=== PATIENT | female | born 1980 | race Caucasian/White ===

== ENCOUNTER 2017-05-12 18:40 | Emergency (ER) | payer OTHER ==
[~2017-05-12] VITALS: Ht 170.2 cm; Wt 70.0 kg
[~2017-05-12 18:40] MED LIST: FERR324T4 PO; IBUP800T23 PO; METH-703 PO; PERC5TAB12 PO; PREN0.01 PO
[2017-05-12 18:41] VITALS: BP 122/86; PULSE 94; RESP 20; TEMP 98.4; O2SAT 99
[2017-05-12] MEDS ORDERED: HYDR12.57 PO (19:33)
[2017-05-12] MEDS ORDERED: ADDE10 PO (19:33)
[2017-05-12] MEDS ORDERED: SODIUM CHLOR 0.9% 1000 ML INJ 1,000 ML IV ONE (19:42)
[2017-05-12] MEDS ORDERED: SODIUM CHLORIDE 0.9% FLUSH 10 ML FLUSH IVF PRN (19:45)
[2017-05-12] MEDS ORDERED: KETOROLAC TROMETHAMINE 30 MG/ML (IVP) VIAL IV PUSH ONE (19:45)
[2017-05-12] MEDS ORDERED: ONDANSETRON HCL 4 MG/2 ML VIAL IVP ONE (19:45)
[2017-05-12] MEDS ORDERED: DIAZEPAM 10 MG TAB PO ONE (19:45)
[2017-05-12 20:19] VITALS: RESP 18; O2SAT 98
--- NOTE | 2017-05-12 20:22 | RADRPT ---
EXAM DATE/TIME: 05/12/2017 19:54 [facility] COMPARISON: No previous studies available for comparison. INDICATIONS : Upper back pain. MEDICAL HISTORY : None. SURGICAL HISTORY : None. ENCOUNTER: Initial ACUITY: 4 - 6 days PAIN SCORE: 8/10 LOCATION: Bilateral chest FINDINGS: PA and lateral views of the chest demonstrate a normal-sized cardiac silhouette. There is no effusion , consolidation, or pneumothorax. The bones and soft tissues demonstrate no acute abnormality. CONCLUSION: No acute cardiopulmonary abnormality is identified. Jann Cobian MD on May 12, 2017 at 20:19 Board Certified Radiologist. This report was verified electronically.
--- NOTE | 2017-05-12 20:24 | RADRPT ---
EXAM DATE/TIME: 05/12/2017 19:57 [facility] COMPARISON: No previous studies available for comparison. INDICATIONS : Right shoulder pain. Possible pulled muscle. No prior trauma. MEDICAL HISTORY : None. SURGICAL HISTORY : None. ENCOUNTER: Initial ACUITY: 4 - 6 days PAIN SCORE: 10/10 LOCATION: Right shoulder. FINDINGS: 4 views of the right shoulder demonstrate no fracture or dislocation. The acromioclavicular joint is intact. The visualized soft tissues demonstrate no abnormality. Visualized portions of the right lung are clear. No displaced rib fracture is seen. CONCLUSION: No acute abnormality. Jann Cobian MD on May 12, 2017 at 20:21 Board Certified Radiologist. This report was verified electronically.
[2017-05-12 20:57] LABS: AUTOMATED NEUTROPHIL # 2.7 TH/MM3 (1.8-7.7); BASOPHIL % 0.9 % (0.0-2.0); EOSINOPHIL # 0.2 TH/MM3 (0-0.4); EOSINOPHIL % 3.8 % (0.0-4.0); HEMATOCRIT 35.7 % (35.0-46.0); HEMO FLAGS DIFF FINAL; LYMPH % 26.2 % (9.0-44.0); LYMPHOCYTE # 1.2 TH/MM3 (1.0-4.8); MEAN CELL VOLUME 75.7 FL (80.0-100.0); MEAN CORPUSCULAR HEMOGLOBIN 23.6 PG (27.0-34.0); MEAN CORPUSCULAR HGB CONC 31.2 % (32.0-36.0); NEUT % 59.1 % (16.0-70.0); PLATELET COUNT 260 TH/MM3 (150-450); RED BLOOD COUNT 4.72 MIL/MM3 (4.00-5.30); RED CELL DISTRIBUTION WIDTH 17.7 % (11.6-17.2); WHITE BLOOD COUNT 4.5 TH/MM3 (4.0-11.0)
[2017-05-12 21:09] LABS: ALT (GPT) 19 U/L (10-53); ANION GAP 8 MEQ/L (5-15); AST (GOT) 19 U/L (15-37); BICARBONATE 25.4 MEQ/L (21.0-32.0); BLOOD UREA NITROGEN 13 MG/DL (7-18); CHLORIDE 106 MEQ/L (98-107); GLOMERULAR FILTRATION RATE 69 ML/MIN (>89); POTASSIUM 4.3 MEQ/L (3.5-5.1); SODIUM (NA) 139 MEQ/L (136-145)
[2017-05-12 21:14] LABS: ALKALINE PHOSPHATASE 52 U/L (45-117); CREATINE KINASE 161 U/L (26-192); TOTAL BILIRUBIN ADULT 0.3 MG/DL (0.2-1.0)
[2017-05-12] MEDS ORDERED: oxyCODONE/ACETAMINOPHEN 5 MG/325 MG TAB PO ONE (21:15)
[2017-05-12] MEDS ORDERED: DIAZ5 PO (22:17)
[2017-05-12] MEDS ORDERED: HYDR-3516 PO (22:17)
--- NOTE | 2017-05-12 22:17 | PD ---
HPI Chief Complaint: Back/ Neck Pain or Injury Time Seen by Provider: 19:36 Travel History International Travel<30 days: No Contact w/Intl Traveler<30days: No Traveled to known affect area: No History of Present Illness HPI Patient is a 36-year-old female who comes in complaining of right shoulder pain. She says it has been hurting her since last week when she emptied a very heavy cooler. She went to see her primary care doctor who prescribed Flexeril and hydrocodone. She says this has been helping, but she ran out of the hydrocodone, and the pain became very severe today. She says she got such a severe pain today that she actually passed out. She denies any headache currently. She has not had any chest pain or shortness of breath. She says the pain is around her right shoulder blade. She denies any direct trauma. She does say the pain shoots down her right arm. She denies having pain like this before. She has not had any fever or chills. PFSH Past Medical History Asthma: No Autoimmune Disease: No Blood Disorders: No Anxiety: No Depression: No Heart Rhythm Problems: No Cancer: No Cardiovascular Problems: No High Cholesterol: No Chemotherapy: No Chest Pain: No Congestive Heart Failure: No COPD: No Diabetes: No Diminished Hearing: No Endocrine: No GERD: No Glaucoma: No Genitourinary: No Hepatitis: No Hiatal Hernia: No Immune Disorder: No Kidney Stones: No Musculoskeletal: No Neurologic: No Psychiatric: No Respiratory: No Radiation Therapy: No Renal Failure: No Sleep Apnea: No Thyroid Disease: No Ulcer: No ?: Not Past Surgical History Abdominal Surgery: Yes (GASTRIC BYPASS) AICD: No Eye Surgery: Yes (18 MONTHS OLD) Joint Replacement: No Oral Surgery: Yes (sinus surgery 5 years ago) Pacemaker: No Other Surgery: Yes (Gastric bypass, sinus, eyes bilateral) Social History Alcohol Use: No Tobacco Use: No Substance Use: No Allergies-Medications (Allergen,Severity, Reaction): Coded Allergies: *MDRO Multi-Drug Resistant Organism (Verified Adverse Reaction, Unknown, ) MRSA (buttock wound) - 2002 Reported Meds & Prescriptions Reported Meds & Active Scripts Active Reported Adderall (Amphetamine-Dextroamphetamine) 10 Mg Tab 10 Mg PO BID Avoid late evening doses. Space doses at least 4 to 6 hours if more than once/day dosing. Hydrochlorothiazide 12.5 Mg Cap 12.5 Mg PO DAILY Review of Systems Except as stated in HPI: all other systems reviewed are Neg General / Constitutional: No: Fever, Chills Eyes: No: Blurred Vision HENT: No: Headaches, Lightheadedness Cardiovascular: No: Chest Pain or Discomfort Respiratory: No: Shortness of Breath Gastrointestinal: No: Nausea, Vomiting, Abdominal Pain Musculoskeletal: Positive: Pain Skin: No Rash, No Change in Pigmentation Neurologic: No: Weakness Physical Exam Narrative GENERAL: Awake and alert, in mild distress due to pain. SKIN: Focused skin assessment warm/dry. No erythema or signs of infection. HEAD: Atraumatic. Normocephalic. EYES: Pupils equal and round. No scleral icterus. ENT: Mucous membranes pink and moist. NECK: Trachea midline. No JVD. CARDIOVASCULAR: Regular rate and rhythm. No murmur appreciated. RESPIRATORY: No accessory muscle use. Clear to auscultation. Breath sounds equal bilaterally. MUSCULOSKELETAL: No obvious deformities. No clubbing. No cyanosis. No edema. No spinal tenderness. Tender to palpation around the right scapula. Pain with external rotation of the right shoulder against resistance. Radial pulse intact. NEUROLOGICAL: Awake and alert. No obvious cranial nerve deficits. Motor grossly within normal limits. Normal speech. Sensation intact. PSYCHIATRIC: Appropriate mood and affect; insight and judgment normal. Data Data Last Documented VS Vital Signs Date Time Temp Pulse Resp B/P Pulse Ox O2 Delivery O2 Flow Rate FiO2 05/12/17 20:19 18 98 Room Air 05/12/17 18:41 98.4 94 122/86 Orders Electrocardiogram (05/12/17 19:42) Ed Urine Pregnancytest Poc (05/12/17 19:42) Complete Blood Count With Diff (05/12/17 19:42) Comprehensive Metabolic Panel (05/12/17 19:42) Ckmb (Isoenzyme) Profile (05/12/17 19:42) Troponin I (05/12/17 19:42) Chest, Pa & Lat (05/12/17 19:42) Ecg Monitoring (05/12/17 19:42) Iv Access Insert/Monitor (05/12/17 19:42) Oximetry (05/12/17 19:42) Ondansetron Inj (Zofran Inj) (05/12/17 19:45) Sodium Chloride 0.9% Flush (Ns Flush) (05/12/17 19:45) Sodium Chlor 0.9% 1000 Ml Inj (Ns 1000 M (05/12/17 19:42) Shoulder, Complete (>2vws) (05/12/17 ) Ketorolac Inj (Toradol Inj) (05/12/17 19:45) Diazepam (Valium) (05/12/17 19:45) CKMB (05/12/17 20:15) CKMB% (05/12/17 20:15) Oxycodone-Acetamin 5-325 Mg (Percocet (05/12/17 21:15) Labs Laboratory Tests Test 05/12/17 20:15 White Blood Count 4.5 TH/MM3 Red Blood Count 4.72 MIL/MM3 Hemoglobin 11.2 GM/DL Hematocrit 35.7 % Mean Corpuscular Volume 75.7 FL Mean Corpuscular Hemoglobin 23.6 PG Mean Corpuscular Hemoglobin 31.2 % Concent Red Cell Distribution Width 17.7 % Platelet Count 260 TH/MM3 Mean Platelet Volume 9.2 FL Neutrophils (%) (Auto) 59.1 % Lymphocytes (%) (Auto) 26.2 % Monocytes (%) (Auto) 10.0 % Eosinophils (%) (Auto) 3.8 % Basophils (%) (Auto) 0.9 % Neutrophils # (Auto) 2.7 TH/MM3 Lymphocytes # (Auto) 1.2 TH/MM3 Monocytes # (Auto) 0.4 TH/MM3 Eosinophils # (Auto) 0.2 TH/MM3 Basophils # (Auto) 0.0 TH/MM3 CBC Comment DIFF FINAL Differential Comment Sodium Level 139 MEQ/L Potassium Level 4.3 MEQ/L Chloride Level 106 MEQ/L Carbon Dioxide Level 25.4 MEQ/L Anion Gap 8 MEQ/L Blood Urea Nitrogen 13 MG/DL Creatinine 0.92 MG/DL Estimat Glomerular Filtration 69 ML/MIN Rate Random Glucose 77 MG/DL Calcium Level 8.6 MG/DL Total Bilirubin 0.3 MG/DL Aspartate Amino Transf 19 U/L (AST/SGOT) Alanine Aminotransferase 19 U/L (ALT/SGPT) Alkaline Phosphatase 52 U/L Total Creatine Kinase 161 U/L Creatine Kinase MB 1.0 NG/ML Troponin I LESS THAN 0.02 NG/ML Total Protein 6.9 GM/DL Albumin 3.7 GM/DL MDM Medical Decision Making Medical Screen Exam Complete: Yes Emergency Medical Condition: Yes Medical Record Reviewed: Yes Interpretation(s) ECG shows sinus rhythm at 78, no ST elevation or depression, normal intervals Differential Diagnosis Muscle strain versus scapular fracture versus rotator cuff injury Narrative Course Patient is a 36-year-old female comes in complaining of right shoulder pain. The pain got so bad today, but she says she passed out. Exam shows tenderness around the right scapula. IV established, labs sent. Labs show no acute abnormalities. Given Valium and Toradol for pain. Chest x-ray and shoulder x-ray show no acute abnormalities. Last 24 hours Impressions Chest X-Ray 05/12/17 1942 Signed Impressions: Service Date/Time: Friday, May 12, 2017 19:54 - CONCLUSION: No acute cardiopulmonary abnormality is identified. Jann Cobian MD Shoulder X-Ray 05/12/17 0000 Signed Impressions: Service Date/Time: Friday, May 12, 2017 19:57 - CONCLUSION: No acute abnormality. Jann Cobian MD Patient felt some relief after Valium and Toradol, but continued to have some pain. Given a Percocet with relief of symptoms. She'll be discharged with prescription for Valium and hydrocodone. Patient advised follow-up with her doctor. Advised to return to the ED as needed for any worsening symptoms. Diagnosis Primary Impression: Muscle spasm Patient Instructions: General Instructions, Muscle Spasm (ED), Shoulder Sprain (ED) Additional Instructions: Take pain medicine as needed. Take ibuprofen for decreasing inflammation. Be careful as medications may make you drowsy. Follow-up with her doctor. Return to the emergency department as needed for any worsening symptoms. Scripts Hydrocodone-Acetaminophen 5-325 mg Tab1 Tab PO Q6H PRN (PAIN) #10 TAB Ref 0 Prov:Johanny Arroyo MD 05/12/17 Diazepam (Valium)5 Mg Tab5 Mg PO TID PRN (SPASM) #15 TAB Ref 0 Prov:Johanny Arroyo MD 05/12/17 Disposition: 01 DISCHARGE HOME Condition: Stable Johanny Arroyo MD May 12, 2017 22:17
--- NOTE | 2017-05-13 17:15 | EKG ---
Date Performed: 05/12/2017 Time Performed: 20:17:57 PTAGE: 36 years EKG: Sinus rhythm NORMAL ECG NO PREVIOUS TRACING DOCTOR: Tasha Upton Interpretating Date/Time 05/13/2017 17:09:50
== END 2017-05-12 23:05 | disposition home or self-care (01) ==
LOC: NEPD 18:40
DX: M62.838 Other muscle spasm (principal); X50.0XXD Overexertion from strenuous movement or load, subsequent encounter
CPT/HCPCS: 71020; 73030; 80053; 82550; 82552; 84484; 84703; 85025; 93005; 96374; 96375; 99285; J1885; J2405; J7030

== ENCOUNTER 2017-06-11 20:38 | Emergency (ER) | payer OTHER ==
[~2017-06-11] VITALS: Ht 170.2 cm; Wt 79.0 kg
[~2017-06-11 20:38] MED LIST changes: +ADDE10 PO; +DIAZ5 PO; -FERR324T4 PO; +HYDR-3516 PO; +HYDR12.57 PO; -IBUP800T23 PO; -METH-703 PO; -PERC5TAB12 PO; -PREN0.01 PO
[2017-06-11 20:45] VITALS: BP 125/75; PULSE 96; RESP 16; TEMP 98.6; O2SAT 100
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
[2017-06-11] MEDS ORDERED: ACETAMINOPHEN/HYDROcodone 325 MG/5 MG TAB PO ONE (21:15)
--- NOTE | 2017-06-11 21:30 | RADRPT ---
EXAM DATE/TIME: 06/11/2017 21:01 [facility] COMPARISON: No previous studies available for comparison. INDICATIONS : Trauma, fall onto backside on stairs. Upper posterior sacral and pelvic pain. ORAL CONTRAST: No oral contrast ingested. RADIATION DOSE: 30.65 CTDIvol (mGy) MEDICAL HISTORY : None SURGICAL HISTORY : None. ENCOUNTER: Initial ACUITY: 1 day PAIN SCALE: 10/10 LOCATION: pelvis TECHNIQUE: Volumetric scanning of the pelvis was performed. Using automated exposure control and adjustment of the mA and/or kV according to patient size, radiation dose was kept as low as reasonably achievable t o obtain optimal diagnostic quality images. DICOM format image data is available electronically for review and comparison. FINDINGS: BOWEL/MESENTERY: The visualized small and large bowel demonstrate no acute abnormality. There is no free fluid. BLADDER: There is no wall thickening or mass. RETROPERITONEUM: There is no aneurysm or lymphadenopathy. REPRODUCTIVE: IUD is noted within the uterus. 1.5 cm right ovarian cyst. INGUINAL: There is no lymphadenopathy or hernia. MUSCULOSKELETAL: There is a transverse fracture noted through the sacrum at the S4 level. There is anterior cortical b uckling and a fracture lucency identified. Includes posterior elements. CONCLUSION: Sacral fracture. Chandana Bella MD on June 11, 2017 at 21:26 Board Certified Radiologist. This report was verified electronically.
[2017-06-11] MEDS ORDERED: HYDR-3534 PO (21:50)
== END 2017-06-11 22:05 | disposition home or self-care (01) ==
LOC: PHEFT 20:38
DX: S32.10XA Unspecified fracture of sacrum, initial encounter for closed fracture (principal); W10.9XXA Fall (on) (from) unspecified stairs and steps, initial encounter; Y92.831 Amusement park as the place of occurrence of the external cause
CPT/HCPCS: 72192; 99284